=== PATIENT | male | born 1940 | race Caucasian/White ===

== ENCOUNTER 2016-10-17 17:23 | Emergency (ER) | payer MEDICARE, MEDICAID ==
[2016-10-17 17:23] VITALS: BMI 30.1
[2016-10-17 17:35] VITALS: TEMP 97.7
[2016-10-17] MEDS ORDERED: METHYLPREDNISOLONE 125 MG/2 ML VIAL IV ONE (18:48)
[2016-10-17] MEDS ORDERED: Albuterol/Ipratropium Neb 3 ML NEB NEB ONE (18:48)
[2016-10-17] MEDS ORDERED: NS 1,000 ML IV ONE (18:50)
[2016-10-17] MEDS ORDERED: hydrALAZINE 20 MG/ML VIAL IV ONE (18:51)
[2016-10-17 19:08] LABS: ALLEN'S TEST PASS; TCO2 27.3 MMOL/L (23-27)
[2016-10-17 19:09] LABS: ABG Draw Site Right Radial
[2016-10-17 19:15] LABS: AUTOMATED BASOPHIL 0.6 % (0-2); AUTOMATED LYMPH 18.4 % (17-44); AUTOMATED MONOCYTE 11.2 % (3-10); AUTOMATED NEUTROPHIL 65.8 % (45-76); MPV 10.4 fL (7.4-10.4)
[2016-10-17 19:30] LABS: BLOOD UREA NITROGEN 18 MG/DL (9-20); CALC CORRECTED 10.1 MG/DL (8.4-10.2); CALCIUM 9.8 MG/DL (8.4-10.2); CALCULATED OSMOLALITY 277 MOs/Kg (270-290); CHLORIDE 105 mEq/L (98-107); GLUCOSE 177 MG/DL (70-99); SODIUM LEVEL 141 mEq/L (137-146)
[2016-10-17 19:33] LABS: LEUKOCYTES/URINE NEG (NEGATIVE); NITRITE/URINE NEG (NEGATIVE); URINE OCCULT BLOOD NEG (NEG/TRACE)
--- NOTE | 2016-10-17 19:33 | DIRPT ---
CLINICAL DATA: Cough and shortness of breath for 1 week. EXAM: CHEST 2 VIEW COMPARISON: 05/27/2016. FINDINGS: The heart is borderline enlarged but stable. There is tortuosity, ectasia and calcification of the thoracic aorta. The lungs demonstrate chronic emphysematous changes and pulmonary scarring. No definite acute overlying infiltrates or effusions. The bony structures are intact. IMPRESSION: Chronic emphysematous changes and pulmonary scarring without definite acute overlying pulmonary process. Electronically Signed By: Andrea Urrutia M.D. On: 10/17/2016 19:30
[2016-10-17] MEDS ORDERED: LABETALOL 20 MG/4 ML SYRINGE IV ONE (19:40)
[2016-10-17 19:57] LABS: CPK TOTAL WITH POSSIBLE MB 42 IU/L (55-170)
[2016-10-17] MEDS ORDERED: FUROSEMIDE 40 MG/4 ML VIAL IV ONE (20:15)
--- NOTE | 2016-10-17 20:29 | EDPRACDOC ---
- General Information Chief Complaint: Dyspnea/Resp distress Stated Complaint: DIFFICULTY BREATHING Time Seen by Provider: 10/17/16 18:09 Information Source: Patient Mode Of Arrival: Car Home Medications: Home Medications Allopurinol [Zyloprim] 300 mg PO DAILY 11/13/14 Amitriptyline HCl [Elavil] 10 mg PO HS 11/13/14 Baclofen [Lioresal] 10 mg PO HS 11/13/14 Glipizide [Glucotrol] 5 mg PO BID(MARTHA) 11/13/14 Losartan Potassium [Cozaar] 25 mg PO DAILY 11/13/14 Lovastatin 40 mg PO DAILY 11/13/14 Polyethylene Glycol 3350 [Miralax] 17 gm PO DAILY 11/13/14 Tramadol HCl [Ultram] 100 mg PO HS PRN 11/13/14 Clopidogrel Bisulfate [Plavix] 75 mg PO DAILY 03/12/15 Tiotropium [place] [Spiriva] 1 puff INH DAILY 03/12/15 HydrALAZINE (Cardiovascular) [Apresoline] 50 mg PO TID #90 tab 03/15/15 Metformin HCl [Metformin HCl ER] 500 mg PO DAILY 10/24/15 Potassium Chloride 20 meq PO DAILY 10/24/15 Lisinopril 5 mg PO DAILY 11/17/15 Trazodone HCl 50 mg PO HS 11/17/15 Carvedilol [Coreg] 3.125 mg PO BID 11/29/15 Fluticasone Propionate [Flonase] 1 spray MEHDI DAILY 05/01/16 Isosorbide Mononitrate [Isosorbide Mononitrate ER] 60 mg PO DAILY 05/01/16 Nebulizer [Erapid Nebulizer] 1 each MC .UNKNOWN 05/01/16 Albuterol/Ipratropium Neb [Duoneb] 3 ml NEB Q6H PRN #1 nebu 10/17/16 Furosemide [Lasix] 80 mg PO BID #60 tab 10/17/16 Ipratropium/Albuterol Sulfate [Combivent Respimat Inhal [place]] 1 puff IH QID PRN #1 aer.w.adap 10/17/16 Allergies/Adverse Reactions: Allergies Allergy/AdvReac Type Severity Reaction Status Date / Time No Known Allergies Allergy Verified 10/17/16 17:35 - History of Present Illness Onset: SEVERAL DAYS HPI: PT PRESENTS WITH INCREASED SHOB OVER THE PAST SEVERAL DAY. STATES HE HAS PMH OF AFIB, COPD, AND HEART FAILURE. STATES IT HAS GOTTEN TO THE POINT THAT IT FEELS LIKE HE MAY . NO ACUTE DISTRESS UPON EXAM Shortness of Breath: Mild Relevant History: Reports: COPD, Heart Failure (CHF) Cough: Reports: Non-productive Rhinorrhea: Reports: Clear Ear Symptoms: Reports: None SOB Worsens with: Reports: Exertion, Movement, Coughing, Lying Flat, Position SOB Improves with: Reports: Sitting up, Rest, Position Recently treated infections:: Denies: Otitis media, Pneumonia, URI ED Past Medical History - History Reviewed Yes Nurses notes reviewed and agree except as marked - Patient Medical History Neurological History: Reports: Cerebrovascular Accident (07/2015 CVA, CVA 1989 RT ARM WEAKNESS) Cardiac History: Reports: Coronary Artery Disease (Mild no hemodynamically significant stenosis), Atrial Fibrillation, Hypertension, Congestive Heart Failure (10/2014 ECHO: EF 35-40%, LAE. Diffuse hypokinesis. Mild MR. Dilated RV, 52 m), Heart Attack ( [place] X2), Cardiac Catheterization (OCT 2014), Hypercholesterolemia, Cardiomyopathy Respiratory History: Reports: Asthma, COPD, Pneumonia (11/2014), Emphysema GI/ History: Reports: Renal Disease (ELEVATED CREATINE), Kidney (Renal Surgery ), Urinary Tract Infection, Kidney Stones, Gastroesophageal Reflux Musculoskeletal History: Reports: Arthritis, Gout, Osteoarthritis Psychological History: Reports: Anxiety. Denies: Depression, Substance Use Disorder Systemic History: Reports: Cancer, Anemia, Diabetes Surgical History: Reports: Cholecystectomy, Cardiac Catheterization (OCT 2014), Hernia Surgery (INGUINAL HERNIA SX ), Other (Kidney stonesback cardiac catheterization hernia repair and partial left ki) - Family Medical History Reports: Hypertension, Diabetes, Cancer (Father: pancreatic cancer), Stroke ( Mother), Cardiac Disorders - Social Medical History Smoking Status: Former smoker Social History: Denies: Substance Use Disorder EDM Review of Systems - Review of Systems ROS Negative Except as Marked: Yes All systems reviewed and were negative except as marked - Physical Exam Constitutional: Alert Oriented to: Time, Person, Place Last recorded Vital Signs: Last Vital Signs Temp 97.7 F 10/17/16 17:33 Pulse 49 L 10/17/16 19:44 Resp 18 10/17/16 19:44 BP 201/93 H 10/17/16 19:44 Pulse Ox 94 10/17/16 19:44 Oxygen Pulse Oxygen Saturation 94 O2 Device Room Air Oxygen Flow Rate Fraction of Inspired Oxygen ( FIO2) - HEENT Head: Normal ( normocephalic) Eye Exam: Normal (PERRL, EOMI, Sclera white) Oropharynx: Normal (Pharynx:Moist without exudate,Gums-no swelling) Nose: No Symptoms Reported (septum midline) Neck: Normal (FROM, trachea at midline) - Respiratory/Cardiovascular Respiratory: Accessory Muscle Use, Diminished Cardiovascular: Bradycardia, Irregular - GI Auscultation: Normal (NABS) Palpation: Normal (Soft,No rebound or guarding, non distended) Tenderness: Non tender Miller's Sign: Negative Rectal Exam: Deferred - Musculoskeletal Back: Normal (Non-Tender) Extremities: Normal (Normal tone, Pulses 2+ No cyanosis or edema, FROM) - Integumentary Skin: Normal, Warm, Dry Lymphatics: Normal (no adenopathy) - Neurologic Memory Impaired: Normal Motor Function: Normal (Normal tone, Pulses 2+ No cyanosis or edema, FROM) Cranial Nerve: Normal (CN II-X11 intact sensation, strength 5/5) Cerebellar: Normal Mood Description: Normal Perception: Normal ED SOB MDM - Differential Diagnosis Differential Diagnosis: Heart Failure, Other - Results Result Diagrams: 10/17/16 19:08 10/17/16 19:08 Results: WBC 10.7 xk/uL (3.8-10.8) 10/17/16 19:08 RBC 4.37 xM/uL (4.70-6.10) L 10/17/16 19:08 Hgb 12.6 g/dL (14.0-18.0) L 10/17/16 19:08 Hct 39.1 % (42-52) L 10/17/16 19:08 MCV 90 fL (80-94) 10/17/16 19:08 MCH 28.8 pg (27-32) 10/17/16 19:08 MCHC 32.2 g/dl (33-36) L 10/17/16 19:08 RDW 15.7 % (11.5-14.5) H 10/17/16 19:08 Plt Count 254 xk/uL (130-400) 10/17/16 19:08 MPV 10.4 fL (7.4-10.4) 10/17/16 19:08 Neut % (Auto) 65.8 % (45-76) 10/17/16 19:08 Lymph % (Auto) 18.4 % (17-44) 10/17/16 19:08 Clare % (Auto) 11.2 % (3-10) H 10/17/16 19:08 Eos % (Auto) 4.0 % (0-5) 10/17/16 19:08 Baso % (Auto) 0.6 % (0-2) 10/17/16 19:08 Absolute Neuts (auto) 6.96 xk/uL (1.7-8.2) 10/17/16 19:08 Absolute Lymphs (auto) 1.93 xk/uL (0.65-4.75) 10/17/16 19:08 Puncture Site Right radial 10/17/16 19:00 pH 7.400 pH UNITS (7.35-7.45) 10/17/16 19:00 pCO2 42.0 mmHg (35-45) 10/17/16 19:00 pO2 66.0 mmHg (80-100) L 10/17/16 19:00 HCO3 26.0 MMOL/L (22-26) 10/17/16 19:00 Total CO2 27.3 MMOL/L (23-27) H 10/17/16 19:00 Base Excess 1.0 (+/- 2) 10/17/16 19:00 FiO2 % .21 10/17/16 19:00 Specimen Drawn By Baras 10/17/16 19:00 Sodium 141 mEq/L (137-146) 10/17/16 19:08 Potassium 4.6 mEq/L (3.5-5.1) 10/17/16 19:08 Chloride 105 mEq/L (98-107) 10/17/16 19:08 Carbon Dioxide 24 mMOL/L (22-33) 10/17/16 19:08 Anion Gap 17 mEq/L (8-16) H 10/17/16 19:08 BUN 18 MG/DL (9-20) 10/17/16 19:08 Creatinine 0.90 MG/DL (0.66-1.25) 10/17/16 19:08 Estimated GFR (MDRD) > 60 mL/min (>=60) 10/17/16 19:08 Glucose 177 MG/DL (70-99) H 10/17/16 19:08 Calculated Osmolality 277 MOs/Kg (270-290) 10/17/16 19:08 Lactic Acid 1.1 mEq/L (0.7-2.1) 10/17/16 19:25 Calcium 9.8 MG/DL (8.4-10.2) 10/17/16 19:08 Corrected Calcium 10.1 MG/DL (8.4-10.2) 10/17/16 19:08 Total Bilirubin 0.4 MG/DL (0.2-1.3) 10/17/16 19:08 AST 17 IU/L (17-59) 10/17/16 19:08 ALT 18 IU/L (21-72) L 10/17/16 19:08 Alkaline Phosphatase 102 IU/L (50-160) 10/17/16 19:08 Creatine Kinase 42 IU/L (55-170) L 10/17/16 19:08 Troponin I 0.03 ng/mL (<.04) 10/17/16 19:08 [id number] Pept 5010 pg/mL (0-1800) H 10/17/16 19:08 Total Protein 7.0 G/DL (6.3-8.2) 10/17/16 19:08 Albumin 3.7 G/DL (3.5-5.0) 10/17/16 19:08 Urine Color Yellow 10/17/16 19:08 Urine Clarity Clear 10/17/16 19:08 Urine pH 6.0 (5.0-8.0) 10/17/16 19:08 Ur Specific [place] 1.010 (1.003-1.035) 10/17/16 19:08 Urine Protein Trace (NEG/TRACE) 10/17/16 19:08 Urine Glucose (UA) Neg (NEGATIVE) 10/17/16 19:08 Urine Ketones Neg (NEGATIVE) 10/17/16 19:08 Urine Occult Blood Neg (NEG/TRACE) 10/17/16 19:08 Urine Nitrite Neg (NEGATIVE) 10/17/16 19:08 Urine Bilirubin Neg (NEGATIVE) 10/17/16 19:08 Urine Urobilinogen 0.2 MG/DL (0-1) 10/17/16 19:08 Ur Leukocyte Esterase Neg (NEGATIVE) 10/17/16 19:08 Urine RBC 2-5 (0-2) H 10/17/16 19:08 Urine WBC 2-5 (0-2) H 10/17/16 19:08 Urine Mucus Occ (NEG/OCC) 10/17/16 19:08 Lab Results 10/17/16 10/17/16 10/17/16 19:25 19:08 19:08 WBC 10.7 RBC 4.37 L Hgb 12.6 L Hct 39.1 L MCV 90 MCH 28.8 MCHC 32.2 L RDW 15.7 H Plt Count 254 MPV 10.4 Neut % (Auto) 65.8 Lymph % (Auto) 18.4 Clare % (Auto) 11.2 H Eos % (Auto) 4.0 Baso % (Auto) 0.6 Absolute Neuts (auto) 6.96 Absolute Lymphs (auto) 1.93 Puncture Site pH pCO2 pO2 HCO3 Total CO2 Base Excess FiO2 % Specimen Drawn By Sodium Potassium Chloride Carbon Dioxide Anion Gap BUN Creatinine Estimated GFR (MDRD) Glucose Calculated Osmolality Lactic Acid 1.1 Calcium Corrected Calcium Total Bilirubin AST ALT Alkaline Phosphatase Creatine Kinase Troponin I [id number] Pept Total Protein Albumin Urine Color Yellow Urine Clarity Clear Urine pH 6.0 Ur Specific [place] 1.010 Urine Protein Trace Urine Glucose (UA) Neg Urine Ketones Neg Urine Occult Blood Neg Urine Nitrite Neg Urine Bilirubin Neg Urine Urobilinogen 0.2 Ur Leukocyte Esterase Neg Urine RBC 2-5 H Urine WBC 2-5 H Urine Mucus Occ 10/17/16 10/17/16 19:08 19:00 WBC RBC Hgb Hct MCV MCH MCHC RDW Plt Count MPV Neut % (Auto) Lymph % (Auto) Clare % (Auto) Eos % (Auto) Baso % (Auto) Absolute Neuts (auto) Absolute Lymphs (auto) Puncture Site Right radial pH 7.400 pCO2 42.0 pO2 66.0 L HCO3 26.0 Total CO2 27.3 H Base Excess 1.0 FiO2 % .21 Specimen Drawn By Baras Sodium 141 Potassium 4.6 Chloride 105 Carbon Dioxide 24 Anion Gap 17 H BUN 18 Creatinine 0.90 Estimated GFR (MDRD) > 60 Glucose 177 H Calculated Osmolality 277 Lactic Acid Calcium 9.8 Corrected Calcium 10.1 Total Bilirubin 0.4 AST 17 ALT 18 L Alkaline Phosphatase 102 Creatine Kinase 42 L Troponin I 0.03 [id number]-[id number] Pept 5010 H Total Protein 7.0 Albumin 3.7 Urine Color Urine Clarity Urine pH Ur Specific [place] Urine Protein Urine Glucose (UA) Urine Ketones Urine Occult Blood Urine Nitrite Urine Bilirubin Urine Urobilinogen Ur Leukocyte Esterase Urine RBC Urine WBC Urine Mucus - EKG EKG #1 EKG Time: 17:33 -: Yes EKG interpreted by me Rate: bpm: 52 [place]: LAD Rhythm: Afib (WITH SLOW VENTRICULAR RESPONSE) Block: RBBB Hypertrophy: None ST: Normal Decision Time to Discharge: 20:34 - Departure Disposition: Home Condition: Stable Final Diagnosis: Congestive heart failure COPD (chronic obstructive pulmonary disease) Qualifiers: COPD type: COPD with acute exacerbation Qualified Code(s): J44.1 - Chronic obstructive pulmonary disease with (acute) exacerbation Instructions: *Heart Failure (Activity, Diet, Worsening Symptoms, Weight Monitoring)(ED), COPD (Chronic Obstructive Pulmonary Disease) (ED) Education/Counseling Given To: Patient Education/Counseling Given Regarding: Diagnosis, Treatment, Prognosis, Follow Up Referrals: Florence Clement MD [Primary Care Provider] - One Week Prescriptions: Albuterol/Ipratropium Neb [Duoneb] 3 ml NEB Q6H PRN #1 nebu PRN Reason: Shortness Of Breath Furosemide [Lasix] 80 mg PO BID #60 tab Ipratropium/Albuterol Sulfate [Combivent Respimat Inhal [place]] 1 puff IH QID PRN #1 aer.w.adap PRN Reason: shob Additional Instructions: INCREASE LASIX TO 80 MG TWO TIMES A DAY. MAKE SURE TO DO YOU NEBULIZER AND INHALER EVERY DAY PRESCRIBED. FOLLOW UP WITH PCP NEXT WEEK. RETURN TO THE ED FOR WORSENING SYMPTOMS OR CONCERNS.
[2016-10-17 22:20] VITALS: BP 180/101; PULSE 45
== END 2016-10-17 20:45 | disposition home or self-care (01) ==
LOC: ED 17:23
DX: I50.9 Heart failure, unspecified (principal); J44.1 Chronic obstructive pulmonary disease with (acute) exacerbation
CPT/HCPCS: 36415; 36600; 71020; 80053; 81001; 82550; 82803; 83605; 83880; 84484; 85025; 87040; 93005; 94640; 96361; 96374; 96375; 99283; J1940; J2930; J3490; J7620; J0360